=== PATIENT | female | born 1985 | race Caucasian/White ===

== ENCOUNTER 2017-02-05 06:09 | Inpatient (IN) | payer OTHER ==
[~2017-02-05] VITALS: Ht 160 cm; Wt 72.1 kg
[2017-02-05] VITALS (57 sets, daily range): BP systolic 100–121; BP diastolic 57–79; PULSE 60–185; RESP 14–18; TEMP 97.9–99.2; O2SAT 100
[~2017-02-05 06:09] MED LIST: FERR325C; PREN1TAB58
[2017-02-05] MEDS ORDERED: LACTATED RINGER'S 1000 ML INJ 1,000 ML IV PRN (06:38)
[2017-02-05] MEDS ORDERED: LACTATED RINGER'S 1000 ML INJ 1,000 ML IV SCH (06:38)
[2017-02-05] MEDS ORDERED: LIDOCAINE HCL 1% 50 ML VIAL INFIL PRN (06:45)
[2017-02-05] MEDS ORDERED: LIDOCAINE HCL 1% 50 ML VIAL I-DERMAL PRN (06:45)
[2017-02-05] MEDS ORDERED: CITRIC ACID-SODIUM CITRATE LIQ 30 ML UDC PO SCH (06:45)
[2017-02-05] MEDS ORDERED: SODIUM CHLORID 0.9% 500 ML INJ 500 ML IV PRN (06:45)
[2017-02-05] MEDS ORDERED: OXYTOCIN 30 UNITS-500ML PREMIX 500 ML IV ONE (06:45)
[2017-02-05] MEDS ORDERED: MINERAL OIL 10 ML VIAL TOPICAL PRN (06:45)
--- NOTE | 2017-02-05 06:52 | HHI.HP ---
HPI Chief Complaint labor Date Seen: Feb 05, 2017 Time Seen: 06:40 Travel History International Travel<30 Days: No Contact w/Intl Traveler<30Days: No Known Affected Area: No History of Present Illness HPI 31YO at 39/3 weeks presents in labor with 48 hours of bloody discharge. Pt is GBS and Hep B negative describing contractions 2-3 minutes apart, 6/100/-1. Category 1 tracing. Para: 1 : 5 Miscarriage: 3 History Past Medical History Medical History: Denies Significant Hx Past Surgical History Narrative Surgical previous C/S Family History Family History: Negative Social History Alcohol Use: No Tobacco Use: No Substance Abuse: No Allergies-Medications (Allergen,Severity, Reaction): Coded Allergies: Penicillin (Verified Allergy, Severe, ANAPHYLAXIS, 01/25/17) Comments denies PCN allergy Home Meds Reported Medications Vit/Iron Fumarate/FA ( Vitamin Formula Tb)1 Each Tablet 12/21/16 Ferrous Sulfate (Iron)325 Mg Capsule.er 12/21/16 Physical Exam Temp - 98.0 / P - 62 / BP - 108/73 / RR - 18 on RA Narrative GENERAL: Well-nourished, well-developed patient. SKIN: Warm and dry. HEAD: Normocephalic and atraumatic. EYES: No scleral icterus. No injection or drainage. ENT: No nasal drainage noted. Mucous membranes pink. Airway patent. NECK: Supple, trachea midline. CARDIOVASCULAR: Regular rate and rhythm without murmurs, gallops, or rubs. RESPIRATORY: Breath sounds equal bilaterally. No accessory muscle use. ABDOMEN/GI: Abdomen soft, non-tender, no rebound, no guarding Gravid to 39 weeks size GENITOURINARY: External Genitalia: intact and normal in appearance Cervix: anterior Dilatation: 6-7 Effacement: 100 Station: -1 Presentation: vtx Membranes: ruptured Uterine Contractions: 2-3 minutes/regular FHT's: Category: 1 Baseline: 140 Reactive: yes Variability: moderate Decels: 0 EXTREMITIES: No cyanosis or edema. BACK: Nontender without obvious deformity. NEUROLOGICAL: Awake and alert. Motor and sensory grossly within normal limits. Five out of 5 muscle strength in all muscle groups. Normal speech. Data Data Orders Ob (2e) Additional Admit Info (02/05/17 06:27) Admit To Inpatient (02/05/17 ) Vital Signs (Adult) .Per protocol (02/05/17 06:38) Heart (02/05/17 06:38) Amnioinfusion (02/05/17 06:38) Urinary Catheter Management .ONCE (02/05/17 06:38) Diet Liquid (02/05/17 Breakfast) Lactated Ringer's 1000 Ml Inj (Lr 1000 M (02/05/17 06:38) Lactated Ringer's 1000 Ml Inj (Lr 1000 M (02/05/17 06:38) Sodium Chlorid 0.9% 500 Ml Inj (Ns 500 M (02/05/17 06:45) Sodium Chlor 0.9% 1000 Ml Inj (Ns 1000 M (02/05/17 06:58) Lidocaine 1% Inj (50 Ml) (Xylocaine 1% I (02/05/17 06:45) Citric Acid-Sodium Citrate Liq (Bicitra (02/05/17 06:45) Fentanyl Inj (Fentanyl Inj) (02/05/17 06:45) Fentanyl Inj (Fentanyl Inj) (02/05/17 06:45) Complete Blood Count With Diff (02/05/17 06:38) Hold Clot (02/05/17 06:38) Abo/Rh Blood Type (02/05/17 06:38) Urinalysis - C+S If Indicated (02/05/17 06:38) Resp Oxygen Non Rebreathe Mask (02/05/17 ) ^ Epidural / Intrathecal Infus (02/05/17 06:38) Oxytocin 30 Units-500ml Premix (Pitocin (02/05/17 06:45) Lidocaine 1% Inj (50 Ml) (Xylocaine 1% I (02/05/17 06:45) Light Mineral Oil (Muri-Lube Oil) (02/05/17 06:45) Inpatient Certification (02/05/17 ) Specimen To Be Collected PRN (02/05/17 06:38) Assessment/Plan Assessment and Plan 31 YO at 39/3 weeks with prior C/S presents in active labor for at 6/ 100/-1. Pt is GBS and HepB negative. Category 1 tracing. 1. IUP - Category 1 tracing - GBS and Hep B neg - Mother desires w/o epidural - Continuous monitor - IV placed - SROM 48 hours ago and bloody Discharge Planning home Ambrocio Martínez MD R1 Feb 05, 2017 06:52
[2017-02-05] MEDS ORDERED: SODIUM CHLOR 0.9% 1000 ML INJ 1,000 ML IV PRN (06:58)
[2017-02-05 07:16] LABS: AUTOMATED NEUTROPHIL # 11.7 TH/MM3 (1.8-7.7); BASOPHIL # 0.1 TH/MM3 (0-0.2); BASOPHIL % 0.5 % (0.0-2.0); EOSINOPHIL % 0.1 % (0.0-4.0); HEMATOCRIT 35.6 % (35.0-46.0); HEMO FLAGS DIFF FINAL; LYMPH % 19.5 % (9.0-44.0); MEAN CELL VOLUME 85.8 FL (80.0-100.0); MEAN CORPUSCULAR HEMOGLOBIN 27.9 PG (27.0-34.0); MEAN CORPUSCULAR HGB CONC 32.5 % (32.0-36.0); MONO % 4.7 % (0.0-8.0); NEUT % 75.2 % (16.0-70.0); PLATELET COUNT 395 TH/MM3 (150-450); RED BLOOD COUNT 4.16 MIL/MM3 (4.00-5.30); RED CELL DISTRIBUTION WIDTH 13.8 % (11.6-17.2); WHITE BLOOD COUNT 15.6 TH/MM3 (4.0-11.0)
[2017-02-05 07:25] LABS: BLOOD, URINE NEG (NEG); COMMENT (UR) CULT NOT INDICATED; CULTURE IF INDICATED CULT NOT INDICATED; GLUCOSE,URINE NEG (NEG); KETONE, URINE NEG (NEG); NITRITE,URINE NEG (NEG); URINE COLOR LIGHT-YELLOW (YELLW/STRAW)
[2017-02-05] MEDS ORDERED: fentaNYL 2MCG-BUPIV 0.125% INJ 100 ML ONE (08:09)
[2017-02-05] MEDS ORDERED: ePHEDrine/NS 25 MG/5 ML SYR ONE (08:09)
[2017-02-05] MEDS ORDERED: NO SYSTEM NARCOTICS PRN (10:00)
[2017-02-05] MEDS ORDERED: DO NOT ADMINISTER ANTICOAGULANTS PRN (10:00)
[2017-02-05] MEDS ORDERED: fentaNYL 2MCG-BUPIV 0.125% 100 ML EPIDURAL SCH (10:00)
[2017-02-05] MEDS ORDERED: ePHEDrine/NS 25 MG/5 ML SYR IV PRN (10:00)
--- NOTE | 2017-02-05 10:12 | PD.LABORPN ---
Subjective Subjective Patient comfortable. Epidural working well. (Kaylynn Henderson MD R1) Objective Vital Signs Vital Signs Date Time Temp Pulse Resp B/P Pulse Ox O2 Delivery O2 Flow Rate FiO2 02/05/17 10:05 67 02/05/17 10:00 73 02/05/17 10:00 71 107/72 02/05/17 09:50 74 02/05/17 09:49 97.9 14 02/05/17 09:45 67 02/05/17 09:45 72 106/67 02/05/17 09:40 72 02/05/17 09:35 75 02/05/17 09:30 70 02/05/17 09:30 67 115/79 02/05/17 09:15 64 114/70 02/05/17 09:15 66 02/05/17 09:15 62 02/05/17 09:15 15 02/05/17 09:10 64 02/05/17 09:10 60 02/05/17 09:10 65 104/78 02/05/17 09:05 61 02/05/17 09:05 64 105/71 02/05/17 09:05 62 02/05/17 09:00 68 02/05/17 09:00 71 02/05/17 09:00 68 108/75 02/05/17 08:55 66 02/05/17 08:55 73 02/05/17 08:55 72 116/64 02/05/17 08:50 63 02/05/17 08:50 78 113/66 02/05/17 08:50 82 02/05/17 08:45 67 118/75 02/05/17 08:45 71 02/05/17 08:45 70 02/05/17 08:40 100/63 100 02/05/17 08:40 63 02/05/17 08:40 65 02/05/17 08:39 66 02/05/17 08:39 114/74 02/05/17 08:35 82 02/05/17 08:35 185 02/05/17 08:30 81 02/05/17 08:30 94 02/05/17 08:18 71 120/73 02/05/17 08:15 18 02/05/17 08:15 108 100 02/05/17 06:28 62 108/73 02/05/17 06:25 73 Objective Pelvic Exam: Dilatation: 7 Effacement: 100 Station: -1 Presentation: Vertex Membranes: AROM at 1010; minimal fluid; clear; bloody show Uterine Contractions: q3min FHT's: Category: 1 Baseline: 124 Reactive: + Variability: Moderate Decels: None (Kaylynn Henderson MD R1) Assessment/Plan Assessment and Plan 31 y/o at 39/3 weeks with prior C/S presents in active labor for . 1. IUP * Category 1 tracing * GBS and Hep B neg * Mother desires * s/p epidural - now resting comfortably * Continuous monitor * Subjective SROM 48 hours from admission * AROM at 1010 - see PE. (Kaylynn Henderson MD R1) Assessment and Plan PT seen and examined with resident, agree with above. Cat I tracing, progressing well. consider oxytocin if no cervical change in 2 hours or contractions space out. ( Josefina Sanchez MD) Kaylynn Henderson MD R1 Feb 05, 2017 10:12 Josefina Sanchez MD Feb 05, 2017 10:26
--- NOTE | 2017-02-05 13:29 | PD.OB.DELI ---
Delivery Date: Feb 05, 2017 Anesthesia: Epidural Episiotomy: None Vaginal Delivery: Normal, Spontaneous, Presentation: Occiput anterior, Vertex Nuchal Cord: x1 (Reduced) Delayed cord clamping (45 sec): Yes Infant: Female, Single One Minute : 8 Five Minute : 9 Placenta: Spontaneous delivery, Intact, 3 vessel cord Laceration: Vaginal laceration, Perineal laceration, 2 deg Repair: Vicryl running Estimated blood loss: 300mL Additional Information Patient is a 31-year-old Who delivered without complications. Delivery was a with epidural in placed. Cord was clamped and cut after 60s. Intact placenta was delivered. After delivery, a secondary laceration on the R inferior vaginal wall as well as perineum were repaired with running vicryl suture. Hemostasis was obtained. Currently mother and baby are resting comfortably in room without complaints. Weight not yet obtained at time of note. (Kaylynn Henderson MD R1) Attestation I was present and directly supervised the entire delivery procedure and repair. (Lary Bonilla MD) Kaylynn Henderson MD R1 Feb 05, 2017 13:29 Lary Bonilla MD Feb 05, 2017 13:50
[2017-02-05] MEDS ORDERED: ONDANSETRON ODT 4 MG TAB PO PRN (13:30)
[2017-02-05] MEDS ORDERED: OXYTOCIN 30 UNITS-500ML PREMIX 500 ML IV SCH (13:30)
[2017-02-05] MEDS ORDERED: BENZOCAINE 20% TOPICAL SPRAY 60 ML CAN TOPICAL PRN (13:30)
[2017-02-05] MEDS ORDERED: ALUMINUM/MAGNESIUM/SIMETH 30 ML CUP PO PRN (13:30)
[2017-02-05] MEDS ORDERED: oxyCODONE/ACETAMINOPHEN 5 MG/325 MG TAB PO PRN ×2 (13:30)
[2017-02-05] MEDS ORDERED: ZOLPIDEM TARTRATE 5 MG TAB PO PRN (13:30)
[2017-02-05] MEDS ORDERED: DOCUSATE SODIUM 50 MG/SENNA 8.6 MG TAB PO PRN (13:30)
[2017-02-05] MEDS ORDERED: WITCH HAZEL 50%/GLYCERIN 12.5% 40 PAD JAR TOPICAL PRN (13:30)
[2017-02-05] MEDS ORDERED: SODIUM CHLORIDE 0.9% FLUSH 10 ML FLUSH IV FLUSH PRN (13:30)
[2017-02-05] MEDS: IBUPROFEN 600 MG TAB PO PRN ×2 (13:34→19:36)
[2017-02-05] MEDS ORDERED: SODIUM CHLORIDE 0.9% FLUSH 10 ML FLUSH IV FLUSH SCH (14:00)
[2017-02-05] MEDS ORDERED: MEASLES, MUMPS, RUBELLA VACCINE 0.5 ML VIAL SQ ONE (16:00)
[2017-02-05] MEDS ORDERED: DIPHTH/TETANUS/ACEL PERTUSSIS (BOOSTER) 0.5 ML VIAL/PFS IM ONE (16:00)
[2017-02-05] MEDS: ACETAMINOPHEN 325 MG TAB PO PRN ×2 (19:36→23:39)
[2017-02-06] MEDS: IBUPROFEN 600 MG TAB PO PRN ×3 (01:24→15:35)
[2017-02-06] MEDS: ACETAMINOPHEN 325 MG TAB PO PRN ×3 (05:12→12:36)
[2017-02-06 08:05] VITALS: BP 117/72; PULSE 64; RESP 18; TEMP 98
--- NOTE | 2017-02-06 08:19 | HHI.OB ---
Subjective Post Day: 1 Remarks Patient is a 31-year-old delivered at 39 weeks and 3 days. Patient is day one after spontaneous vaginal delivery. Patient's pain is well- controlled. Patient reports minimal bleeding. Patient reports eating and drinking without any nausea or vomiting. Patient has passed gas but has not had a bowel movement. Patient denies chest pain and shortness of breath. Patient has been ambulating; she denies lower extremity pain. Patient has decided to breast-feed. Patient reports that she will discuss contraception with her OB at her 6 week follow-up. (Kaylynn Henderson MD R1) Objective Vitals/I&O Vital Signs Date Time Temp Pulse Resp B/P Pulse Ox O2 Delivery O2 Flow Rate FiO2 02/05/17 19:35 98.4 76 16 106/67 02/05/17 15:58 102/63 02/05/17 15:58 85 18 02/05/17 14:30 71 103/57 02/05/17 14:01 15 02/05/17 14:00 65 107/60 02/05/17 13:48 15 02/05/17 13:45 66 108/71 02/05/17 13:38 14 02/05/17 13:37 77 121/68 02/05/17 13:25 14 02/05/17 13:22 76 02/05/17 13:06 99.2 02/05/17 13:05 15 02/05/17 13:01 62 02/05/17 12:02 90 114/64 02/05/17 12:00 80 02/05/17 12:00 15 02/05/17 11:40 76 02/05/17 11:35 74 02/05/17 11:30 76 114/65 02/05/17 11:30 78 02/05/17 11:10 70 02/05/17 11:05 67 02/05/17 11:00 63 02/05/17 11:00 72 106/68 02/05/17 10:55 70 02/05/17 10:50 66 02/05/17 10:45 73 02/05/17 10:45 73 102/70 02/05/17 10:40 68 02/05/17 10:37 14 02/05/17 10:35 72 02/05/17 10:30 68 02/05/17 10:30 71 105/66 02/05/17 10:25 74 02/05/17 10:20 67 02/05/17 10:15 68 02/05/17 10:15 66 113/66 02/05/17 10:10 78 02/05/17 10:05 67 02/05/17 10:00 73 02/05/17 10:00 71 107/72 02/05/17 09:55 76 02/05/17 09:50 74 02/05/17 09:49 97.9 14 02/05/17 09:45 67 02/05/17 09:45 72 106/67 02/05/17 09:40 72 02/05/17 09:35 75 02/05/17 09:30 70 02/05/17 09:30 67 115/79 02/05/17 09:15 64 114/70 02/05/17 09:15 66 02/05/17 09:15 62 02/05/17 09:15 15 02/05/17 09:10 64 02/05/17 09:10 60 02/05/17 09:10 65 104/78 02/05/17 09:05 61 02/05/17 09:05 64 105/71 02/05/17 09:05 62 02/05/17 09:00 68 02/05/17 09:00 71 02/05/17 09:00 68 108/75 02/05/17 08:55 66 02/05/17 08:55 73 02/05/17 08:55 72 116/64 02/05/17 08:50 63 02/05/17 08:50 78 113/66 02/05/17 08:50 82 02/05/17 08:45 67 118/75 02/05/17 08:45 71 02/05/17 08:45 70 02/05/17 08:40 100/63 100 02/05/17 08:40 63 02/05/17 08:40 65 02/05/17 08:39 66 02/05/17 08:39 114/74 02/05/17 08:35 82 02/05/17 08:35 185 02/05/17 08:30 81 02/05/17 08:30 94 Objective Remarks GENERAL: Well-nourished, well-developed patient. CARDIOVASCULAR: Regular rate and rhythm without murmurs, gallops, or rubs. RESPIRATORY: Breath sounds equal bilaterally. No accessory muscle use. ABDOMEN/GI: Abdomen soft, non-tender. Fundus: Firm, non-tender at umbilicus. GENITOURINARY: Light to moderate bleeding. EXTREMITIES: No cyanosis or edema, non-tender, without signs of DVT. Medications and IVs Current Medications Medications (Trade) Dose Ordered Sig/Bairon Route Start Time Stop Time Status Last Admin (NS Flush) 2 ml BID IV FLUSH 02/05/17 14:00 02/05/17 15:18 (NS Flush) 2 ml UNSCH PRN IV FLUSH 02/05/17 13:30 (Tylenol) 650 mg Q4H PRN PO 02/05/17 13:30 02/06/17 05:12 (Motrin) 600 mg Q6H PRN PO 02/05/17 13:30 02/06/17 01:24 (Percocet 5-325 Mg) 1 tab Q4H PRN PO 02/05/17 13:30 (Percocet 5-325 Mg) 2 tab Q4H PRN PO 02/05/17 13:30 (Americaine 20% Top Spr) 1 spray Q4H PRN TOPICAL 02/05/17 13:30 02/05/17 15:55 (Tucks Pads) 1 applic QID PRN TOPICAL 02/05/17 13:30 02/05/17 15:55 (Nahomi-Colace) 2 tab Q12H PRN PO 02/05/17 13:30 (Ambien) 5 mg HS PRN PO 02/05/17 13:30 (Mag-Al Plus Susp Liq) 15 ml Q8H PRN PO 02/05/17 13:30 (Zofran Odt) 4 mg Q6H PRN PO 02/05/17 13:30 (Kaylynn Henderson MD R1) Assessment/Plan Assessment and Plan Patient is a 31-year-old delivered at 39 weeks and 3 days. Patient is day one after spontaneous vaginal delivery. * Continue routine care. * Percocet and Motrin PRN pain. * Encouraged OOB. * Advised pelvic rest for 6 wks. * Advised to follow-up with OB at 6 wks. * Contraception: will discuss with OB at 6 week follow-up. * Discharge today. dw Dr. Bonilla (Kaylynn Henderson MD R1) Attending Attestation The exam, history, and the medical decision-making described in the above note were completed with the assistance of the resident provider. I reviewed and agree with the findings presented. I attest that I had a [id number] encounter with the patient on the same day, and personally performed and documented my assessment and findings in the medical record. (Lary Bonilla MD) Kaylynn Henderson MD R1 Feb 06, 2017 08:18 Lary Bonilla MD Feb 06, 2017 08:57
[2017-02-06] MEDS ORDERED: IBUP-232 PO (08:30)
--- NOTE | 2017-02-06 08:31 | HHI.DCPOC ---
Discharge Care Plan Diagnosis: (1) Vaginal delivery following previous section, delivered Your Health Problems Are: Vaginal delivery Report Symptoms to Your Doctor -Temperature above 100.5 degrees -Redness, of incision or excessive or foul smelling drainage -Unusual pain or calf pain -Increased vaginal bleeding -Painful or difficulty urinating -Feelings of extreme sadness or anxiety after 2 weeks Directions to Meet Your Goals Take your medications as prescribed Follow your dietary instruction Follow activity as directed Ensure plenty of rest for recovery Drink fluids for hydration Keep your appointments as scheduled Take your immunizations and boosters as scheduled If your symptoms worsen call your PCP, if no PCP go to Urgent Care Center or Emergency Room Smoking is Dangerous to Your Health. Avoid second hand smoke Call the 24-hour crisis hotline for domestic abuse at Kaylynn Henderson MD R1 Feb 06, 2017 08:31
== END 2017-02-06 15:38 | disposition home or self-care (01) | DRG 775 ==
LOC: HOBED 06:09 → H2EB 06:30 → H1EA 15:31
PROVIDERS: ADMIT Obstetrics & Gynecology; ATTEND Obstetrics & Gynecology
PROC: 10E0XZZ Delivery of Products of Conception, External Approach (ICD-10-PCS; principal; 2017-02-05)
PROC: 0KQM0ZZ Repair Perineum Muscle, Open Approach (ICD-10-PCS; 2017-02-05)
PROC: 0UQGXZZ Repair Vagina, External Approach (ICD-10-PCS; 2017-02-05)
PROC: 10907ZC Drainage of Amniotic Fluid, Therapeutic from Products of Conception, Via Natural or Artificial Opening (ICD-10-PCS; 2017-02-05)
DX: O34.219 Maternal care for unspecified type scar from previous cesarean delivery (principal); O69.81X0 Labor and delivery complicated by cord around neck, without compression, not applicable or unspecified; O70.1 Second degree perineal laceration during delivery; Z37.0 Single live birth; Z3A.39 39 weeks gestation of pregnancy; Z88.0 Allergy status to penicillin
CPT/HCPCS: 59025; 81001; 85025; 86900; 86901; J2590; J7120

== ENCOUNTER 2018-07-02 18:44 | Inpatient (IN) ==
[2018-07-02] MEDS ORDERED: Sod Chloride 0.9% Inj 1,000 ML IV.CONT PRN (19:19)
[2018-07-02] MEDS ORDERED: Penicillin G Potassium Inj 5,000,000 UNIT in Sodium Chloride 0.9% Inj 100 ML IV.SIG ONE (19:19)
[2018-07-02] MEDS ORDERED: Naloxone Inj 0.4 MG/ML Vial IV.PUSH PRN (19:19)
[2018-07-02] MEDS ORDERED: Oxytocin 30 Units/500ml Premix 30 UNITS/500 ML BAG IV.SIG ONE (19:19)
[2018-07-02] MEDS ORDERED: fentaNYL Citrate Inj 100 MCG/2 ML Ampul IV.PUSH PRN ×2 (19:19)
[2018-07-02] MEDS ORDERED: Sodium Chlor 0.9% Inj 500 ML IV.SIG PRN (19:19)
--- NOTE | 2018-07-02 19:27 | P.HPOB ---
History of Present Illness Primary Care Physician: NOT REQUIRED Dr. Luc Abreu Chief Complaint: Contractions History of Present Illness: Patient is 33-year-old white female A3 at 37 weeks is a previous for delivery now marta with pain every other minute, no bleeding or leakage. heart rate tracing reactive and we are picking up contractions frequently. They are very uncomfortable to patient. She would like a delivery again, she had one with her first baby for breech and then her second baby she delivered without problems she understands risk and benefits of delivery and that we consider a safe procedure especially in her case but there is a slight less than 1% uterine rupture rate which she is aware of and accepts that risk Weeks Gestation:: 37 Para: 2 (1 1 ) : 6 Total # of Miscarriage(s): 3 Review of Systems All other systems reviewed negative except as stated in HPI PMFSH - Surgical History Surgical History: Surgical History (Last Updated 07/02/18 @ 19:24 by Reese Zuniga MD) Previous section - Social History I have reviewed the patient's Social History: Yes - Tobacco History Smoking Status: Never smoker - Alcohol History How Often Do You Have a Drink Containing Alcohol: Never - Substance Use History Substance History: No History of Abuse - Travel History History of Recent Travel: No Recent Travel in the [place] Within the Last 8 Weeks: No Recent Travel Out of the Country Within the Last 8 Weeks: No Medications and Allergies Active Medications: Active Medications Citric Acid/Sodium Citrate (Sodium Citrate/Citric Acid Liq) 30 ml PO [facility] Stop: 07/06/18 19:29 Fentanyl Citrate (Fentanyl Inj) 50 mcg IV.PUSH Q1H PRN PRN Reason: Pain Scale 3 - 5 Fentanyl Citrate (Fentanyl Inj) 100 mcg IV.PUSH Q1H PRN PRN Reason: PAIN SCALE 6 TO 10 Lactated Ringer's (Lr 1000 Ml Inj) 1,000 mls @ 3,000 mls/hr IV.SIG UNSCH PRN PRN Reason: compromise or epidural Lactated Ringer's (Lr 1000 Ml Inj) 1,000 mls @ 125 mls/hr IV.CONT .Q8H [facility] Sodium Chloride (Ns Inj) 500 mls @ 1,000 mls/hr IV.SIG UNSCH PRN PRN Reason: SEE LABEL COMMENTS Sodium Chloride (Ns Inj) 1,000 mls @ 100 mls/hr IV.CONT .Q10H PRN PRN Reason: SEE LABEL COMMENTS Oxytocin (Pitocin 30 Units/Ns 500 Ml Premix) 30 units in 500 mls @ 999 mls/hr IV.SIG BOLUS ONE Stop: 07/02/18 19:49 Penicillin G Potassium 5,000, (000 unit/ Sodium Chloride) 100 mls @ 200 mls/hr IV.SIG ONCE ONE Stop: 07/02/18 19:48 Penicillin G Sodium 2,500,000 (units/ Sodium Chloride) 100 mls @ 200 mls/hr IV.SIG Q4H [facility] Lidocaine HCl (Xylocaine 1% Inj) 0.1 ml I-DERMAL PRN PRN PRN Reason: For IV start Stop: 07/05/18 19:18 Lidocaine HCl (Xylocaine 1% Inj) 10 ml INFILTRATN PRN PRN PRN Reason: For episiotomy repair Stop: 07/04/18 19:18 Mineral Oil (Muri-Lube Oil) 10 ml TOPICAL PRN PRN PRN Reason: PRN perineal massage Naloxone HCl (Narcan Inj) 0.1 mg IV.PUSH Q2M PRN PRN Reason: for opiate reversal Allergies Allergy/AdvReac Type Severity Reaction Status Date / Time No Known Allergies Allergy Uncoded 02/05/17 07:25 Exam Vital signs: Vital Signs 07/02/18 19:16 Temperature 98.6 F Pulse Rate 74 Respiratory Rate 18 Blood Pressure 115/72 Narrative: GENERAL: Well-nourished, well-developed patient. SKIN: Warm and dry. HEAD: Normocephalic and atraumatic. EYES: No scleral icterus. No injection or drainage. ENT: No nasal drainage noted. Mucous membranes pink. Airway patent. NECK: Supple, trachea midline. No JVD. CARDIOVASCULAR: Regular rate and rhythm without murmurs, gallops, or rubs. RESPIRATORY: Breath sounds equal bilaterally. No accessory muscle use. BREASTS: Bilateral exam showed no masses , no retractions, no nipple discharge. ABDOMEN/GI: Abdomen soft, non-tender, bowel sounds present, no rebound, no guarding Gravid to [337-] weeks size Fundal Height: [36-] GENITOURINARY: External Genitalia: intact and normal in appearance BUS glands: [-] Cervix: [-mid] Dilatation: [4-] Effacement: [90-] Station: [-2] Presentation: [vtx-] Membranes: [intact ] Uterine Contractions: [q 2 min-] FHT's: Category: [1-] Baseline: [133-] Reactive: [R-] Variability: [mod-] Decels: [-0] + accels EXTREMITIES: No cyanosis or edema. BACK: Nontender without obvious deformity. No CVA tenderness. NEUROLOGICAL: Awake and alert. Motor and sensory grossly within normal limits. Five out of 5 muscle strength in all muscle groups. Normal speech. Caprini VTE Risk Assessment Caprini VTE Risk Assessment: No/Low Risk (score <= 1) Caprini Risk Assessment Model: Point Value = 1 Point Value = 2 Point Value = 3 Point Value = 5 Age 41-60 Minor surgery BMI > 25 kg/m2 Swollen legs Varicose veins or History of unexplained or recurrent spontaneous Oral contraceptives or hormone replacement Sepsis (< 1 month) Serious lung disease, including pneumonia (< 1 month) Abnormal pulmonary function Acute myocardial infarction Congestive heart failure (< 1 month) History of inflammatory bowel disease Medical patient at bed rest Age 61-74 Arthroscopic surgery Major open surgery (> 45 min) Laparoscopic surgery (> 45 min) Malignancy Confined to bed (> 72 hours) Immobilizing plaster cast Central venous access Age >= 75 History of VTE Family history of VTE Factor V Leiden Prothrombin [id number] Lupus anticoagulant Anticardiolipin antibodies Elevated serum homocysteine Heparin-induced thrombocytopenia Other congenital or acquired thrombophilia Stroke (< 1 month) Elective arthroplasty Hip, pelvis, or leg fracture Acute spinal cord injury (< 1 month) Prophylaxis Regimen: Total Risk Factor Score Risk Level Prophylaxis Regimen 0-1 Low Early ambulation 2 Moderate Order ONE of the following: *Sequential Compression Device (SCD) *Heparin 5000 units SQ BID 3-4 Higher Order ONE of the following medications: *Heparin 5000 units SQ TID *Enoxaparin/Lovenox 40 mg SQ daily (WT < 150 kg, CrCl > 30 mL/min) *Enoxaparin/Lovenox 30 mg SQ daily (WT < 150 kg, CrCl > 10-29 mL/min) *Enoxaparin/Lovenox 30 mg SQ BID (WT < 150 kg, CrCl > 30 mL/min) AND/OR *Sequential Compression Device (SCD) 5 or more Highest Order ONE of the following medications: *Heparin 5000 units SQ TID (Preferred with Epidurals) *Enoxaparin/Lovenox 40 mg SQ daily (WT < 150 kg, CrCl > 30 mL/min) *Enoxaparin/Lovenox 30 mg SQ daily (WT < 150 kg, CrCl > 10-29 mL/min) *Enoxaparin/Lovenox 30 mg SQ BID (WT < 150 kg, CrCl > 30 mL/min) AND *Sequential Compression Device (SCD) Assessment and Plan - Diagnosis (1) 37 or more weeks gestation of Status: Acute (2) Previous section complicating Code(s): O34.219 - Maternal care for unspecified type scar from previous delivery Status: Acute (3) Desires (vaginal after ) trial Code(s): O34.219 - Maternal care for unspecified type scar from previous delivery Status: Acute - Plan This multiparous patient at 37-38 weeks with a previous section requesting delivery because she has had a previous with success. She is in active labor now and understands risk and benefits of and will proceed with that procedure. Probably will receive epidural anesthesia and would anticipate vaginal delivery, admission plan will be to manage and augment labor as needed anticipate vaginal delivery in the form of a
[2018-07-02] MEDS ORDERED: Citric Acid/Sodium Citrate Liq 30 ML UDC PO SCH (19:30)
[2018-07-02] MEDS ORDERED: Lidocaine 1% Inj 50 ML Vial ONE (19:57)
[2018-07-02 20:14] LABS: Bilirubin,Urine Negative (Negative); Clarity,Urine Clear (Clear); Color,Urine Straw (Yellw/Straw); Glucose,Urine (UA) Negative (Negative); Leukocyte Esterase,Urine Negative (Negative); Mucus,Urine Few /lpf (Occasional); Nitrite,Urine Negative (Negative); Specific Gravity,Urine 1.005 (1.002-1.035); Squamous Epithelial Cell,Urine 1 /hpf (0-5)
[2018-07-02 20:30] LABS: Baso # (Auto) 0.1 th/mm3 (0.0-0.2); Baso % (Auto) 0.5 % (0.0-2.0); Eos % (Auto) 0.1 % (0.0-4.0); Hematocrit 34.8 % (35.0-46.0); Hemoglobin 11.6 gm/dL (11.6-15.3); Lymph # (Auto) 2.7 th/mm3 (1.0-4.8); Lymph % (Auto) 17.7 % (9.0-44.0); Mean Corpuscular HGB Conc 33.4 % (32.0-36.0); Mean Corpuscular Volume 86.9 fL (80.0-100.0); Mean Platelet Volume 7.4 fL (7.0-11.0); Mono # (Auto) 0.8 th/mm3 (0.0-0.9); Mono % (Auto) 5.1 % (0.0-8.0); Neut # (Auto) 11.6 th/mm3 (1.8-7.7); Neut % (Auto) 76.6 % (16.0-70.0); Platelet Count 390 th/mm3 (150-450); Red Blood Count 4.01 mil/mm3 (4.00-5.30); Red Cell Distribution Width 13.4 % (11.6-17.2); White Blood Count 15.2 th/mm3 (4.0-11.0)
[2018-07-02 21:13] LABS: Amphetamine Urine With Conf Neg (Neg); Benzodiazepine Urine With Conf Neg (Neg); Cocaine Urine With Conf Neg (Neg); Opiates Urine With Conf Neg (Neg)
[2018-07-02 21:17] LABS: Cannabinoid Urine With Conf Neg (Neg)
[2018-07-03] MEDS ORDERED: Morphine Sulfate PF Inj 5 MG/10 ML Ampul ONE (00:23)
[2018-07-03] MEDS ORDERED: Albumin Human 5% Inj 500 ML IV.SIG ONE ×2 (02:00)
[2018-07-03] MEDS ORDERED: Acetaminophen 325 MG Tablet PO PRN (02:16)
[2018-07-03] MEDS ORDERED: Zolpidem Tartrate 5 MG Tablet PO PRN (02:16)
[2018-07-03] MEDS ORDERED: Oxytocin 30 Units/500ml Premix 30 UNITS/500 ML BAG IV.SIG ONE (02:16)
[2018-07-03] MEDS ORDERED: Simethicone 80 MG Chew Tablet PO PRN (02:16)
[2018-07-03] MEDS ORDERED: fentaNYL Citrate Inj 100 MCG/2 ML Ampul ONE (02:22)
--- NOTE | 2018-07-03 02:32 | P.OP ---
- Preoperative Diagnosis (1) 37 or more weeks gestation of (2) Breech presentation (3) Uterine contractions during - Postoperative Diagnosis (1) 37 or more weeks gestation of (2) Breech presentation (3) Uterine contractions during Date of procedure: 07/03/18 (Patient is 33-year-old white female 37 weeks who has in the past was trying to this baby but on ruptured membranes discovered the baby was a carmen breech opted for repeat section) Procedure: Repeat low transverse section Repair of left uterine incision extension into the vagina Anesthesia: spinal Surgeon: Reese Zuniga MD Nursing Associate: Svetlana Parson R1 Estimated blood loss (mL): 2,200 IV fluids (mL): 2,000 (Also 1 bottle of albumin and 1 unit of packed red cells given) Urine output (mL): 100 Operation and Findings: Patient was taken operating room placed supine position on the operating table after adequate spinal anesthesia, a low transverse Pfannenstiel incision was excised out and then the incision carried to the fascia sharply the fascia dissected laterally and then off the rectus muscle in the usual fashion. Incision made in the midline into the perineal cavity and the incision extended superiorly and inferiorly with care used to avoid the bladder. Notably placed lower incision and the visceral peritoneum reflected off the lower uterine segment and the bladder placed on the bladder blade. A transverse hysterotomy was placed in the bluntly bilaterally and a carmen breech was noted at that time and was a male weight 2630 gm delivered at 12:55 AM and had an of 8 /9. Delayed cord clamping observed and a cord blood obtained placenta manually extracted. The uterus exteriorized and that time we could see a large extension on the left side of the uterine incision down laterally and in to the vagina ring forceps placed along the edges of the segment and I can follow this extension all the way down to the vagina and this area had a avulsed off the uterine vessels artery and vein which were bleeding rather briskly hemostat was used to clamp these vessels they were oversewn with 2-0 Vicryl and then a 0 chromic used to start at the deepest apex of the extension on the lateral side and then work toward the lower uterine segment in a running locking fashion once this was brought up to the level of the uterine incision that was tied and then a second 0 chromic suture then used to close the transverse uterine incision in the usual fashion locking suture followed by an imbricating suture same on reexamining the area of extension on the left side deeply some small oozing areas noted and Bovie cautery used to cauterize this and then Bryant powder placed to deeply into this whole area. The uterus replaced in the peritoneal cavity the parietal peritoneum closed running 2-0 Vicryl rectus muscle reapproximated with stick ties of chromic and Vicryl and then the fascia closed a running layer of 0 Vicryl. The subcutaneous tissues irrigated copiously and then closed with 3-0 plain catgut suture in a running fashion in 2 layers to close the space. And then 3-0 Monocryl subcuticular stitch closed the skin Steri-Strips and pressure dressing applied. The estimated blood loss was 2200 cc, she received a bottle of albumin IV as well as 1 unit of blood in surgery. Sponge and needle counts correct x2 patient taken to recovery room in stable condition.
[2018-07-03 03:14] LABS: Hematocrit 24.7 % (35.0-46.0); Hemoglobin 8.4 gm/dL (11.6-15.3)
[2018-07-03] MEDS: Penicillin G Potassium Inj 2,500,000 UNIT in Sodium Chlor 0.9% Inj 100 ML IV.SIG SCH ×2 (03:14→07:51)
[2018-07-03] MEDS ORDERED: Naloxone Inj 0.4 MG/ML Vial IV.PUSH PRN (04:26)
[2018-07-03] MEDS ORDERED: Oxytocin 30 Units/500ml Premix 30 UNITS/500 ML BAG IV.SIG PRN (07:16)
[2018-07-03 07:42] LABS: Hematocrit 23.8 % (35.0-46.0); Hemoglobin 8.1 gm/dL (11.6-15.3); Mean Corpuscular HGB Conc 33.9 % (32.0-36.0); Mean Corpuscular Hemoglobin 29.7 pg (27.0-34.0); Mean Corpuscular Volume 87.8 fL (80.0-100.0); Mean Platelet Volume 7.1 fL (7.0-11.0); Platelet Count 245 th/mm3 (150-450); Red Blood Count 2.71 mil/mm3 (4.00-5.30); Red Cell Distribution Width 13.3 % (11.6-17.2); White Blood Count 24.7 th/mm3 (4.0-11.0)
[2018-07-03] MEDS ORDERED: Iohexol Inj 350 MG/ML 100 ML Bottle (for RAD Diag) IVCONTRAST ONE (10:15)
--- NOTE | 2018-07-03 10:48 | XR ---
EXAM DATE: 07/03/2018 10:31 AM EST AGE/SEX: 33 years / Female INDICATIONS: Evaluate left ureteral patency post section CLINICAL DATA: This is the patient's initial encounter. Patient reports that signs and/or symptoms h ave been present for 1 day and indicates a pain score of 6/10. LOCATION: MEDICAL/SURGICAL HISTORY: None. COMPARISON: No prior exams available for comparison. RADIATION DOSE: FINDINGS: Pulmonary interviewing clerk film is unremarkable. Following intravenous administration of contrast there is prompt symmetric excretion by the kidneys. Symmetric nephrograms are noted. Pelvicalyceal systems are normal bilaterally without evidence of hydronephrosis. Both ureters are well-opacified without evidence of obstruction or leakage. Urinary bladder is intact. Ashley catheter is noted in place. CONCLUSION: Normal IVP. No evidence of ureteral disruption. Electronically signed by: Alexandr Horton MD Board Certified Radiologist 07/03/2018 10:47 AM EST
[2018-07-03] MEDS: Senna/Docusate Sodium 8.6/50 MG Tablet PO PRN (12:28)
[2018-07-04] MEDS: Senna/Docusate Sodium 8.6/50 MG Tablet PO PRN (03:30)
[2018-07-04 05:19] LABS: Baso % (Auto) 0.1 % (0.0-2.0); Eos % (Auto) 0.1 % (0.0-4.0); Lymph # (Auto) 2.5 th/mm3 (1.0-4.8); Lymph % (Auto) 12.1 % (9.0-44.0); Mean Corpuscular HGB Conc 33.3 % (32.0-36.0); Mean Corpuscular Hemoglobin 29.1 pg (27.0-34.0); Mean Corpuscular Volume 87.4 fL (80.0-100.0); Mono # (Auto) 1.2 th/mm3 (0.0-0.9); Neut # (Auto) 16.6 th/mm3 (1.8-7.7); Neut % (Auto) 81.7 % (16.0-70.0); Platelet Count 221 th/mm3 (150-450); Red Blood Count 1.96 mil/mm3 (4.00-5.30); Red Cell Distribution Width 13.7 % (11.6-17.2); White Blood Count 20.3 th/mm3 (4.0-11.0)
[2018-07-04 05:28] LABS: Hematocrit 17.2 % (35.0-46.0); Hemoglobin 5.7 gm/dL (11.6-15.3)
[2018-07-04] MEDS ORDERED: Sodium Chlor 0.9% Inj 250 ML IV.SIG SCH (08:00)
--- NOTE | 2018-07-04 09:37 | P.PNOB ---
Subjective Post op day: 1 Interval history: Patient is a 33-year-old G 6 P 3 who is day 1 after repeat section. Patient's pain is well-controlled. Patient reports eating and drinking without any nausea or vomiting. Patient reports minimal bleeding. Patient has passed gas but no bowel movements. Patient is walking without lower extremity pain or shortness of breath. She is fatigued. Patient reports desire for breast-feeding. Her hemoglobin dropped overnight from 8.1 to 5.7. She was tachycardic and hypotensive. It was discussed with the patient and 2 units of packed red blood cells will be transfused. Objective Vital Signs/I&O: Vital Signs 07/03/18 12:00 07/03/18 16:00 07/03/18 19:46 Temperature 98.4 F 99.3 F 99.5 F Pulse Rate 102 H 106 H 96 H Respiratory Rate 18 18 18 Blood Pressure 95/57 L 96/46 L 83/51 L 07/04/18 05:37 07/04/18 08:00 Temperature 98.4 F 99.4 F Pulse Rate 112 H 109 H Respiratory Rate 18 18 Blood Pressure 103/66 104/64 Result Diagrams: 07/04/18 09:35 Objective Remarks: GENERAL: Well-nourished, well-developed patient. CARDIOVASCULAR: Regular rate and rhythm without murmurs, gallops, or rubs. RESPIRATORY: Breath sounds equal bilaterally. No accessory muscle use. ABDOMEN/GI: Abdomen soft, non-tender, bowel sounds present. Incision: Clean, dry and intact. Fundus: Firm, non-tender at umbilicus. GENITOURINARY: Light to moderate bleeding. EXTREMITIES: No cyanosis or edema, non-tender, without signs of DVT. Medications and IVs: Active Medications Acetaminophen (Tylenol) 650 mg PO Q6H PRN PRN Reason: PAIN SCALE 1 TO 2 Citric Acid/Sodium Citrate (Sodium Citrate/Citric Acid Liq) 30 ml PO [facility] MARIA DEL CARMEN Stop: 07/06/18 19:29 Diphtheria/Pertussis/Tetanus Vacc (Boostrix Vaccine Inj) 0.5 ml IM .ONCE ONE Stop: 07/04/18 16:01 Fentanyl Citrate (Fentanyl Inj) 50 mcg IV.PUSH Q1H PRN PRN Reason: Pain Scale 3 - 5 Last Admin: 07/02/18 23:25 Dose: 50 mcg Fentanyl Citrate (Fentanyl Inj) 100 mcg IV.PUSH Q1H PRN PRN Reason: PAIN SCALE 6 TO 10 Lactated Ringer's (Lr 1000 Ml Inj) 1,000 mls @ 3,000 mls/hr IV.SIG UNSCH PRN PRN Reason: compromise or epidural Lactated Ringer's (Lr 1000 Ml Inj) 1,000 mls @ 125 mls/hr IV.CONT .Q8H [facility]IA DEL CARMEN Last Admin: 07/04/18 07:54 Dose: Not Given Sodium Chloride (Ns Inj) 500 mls @ 1,000 mls/hr IV.SIG UNSCH PRN PRN Reason: SEE LABEL COMMENTS Sodium Chloride (Ns Inj) 1,000 mls @ 100 mls/hr IV.CONT .Q10H PRN PRN Reason: SEE LABEL COMMENTS Oxytocin (Pitocin 30 Units/Ns 500 Ml Premix) 30 units in 500 mls @ 100 mls/hr IV.SIG UNSCH PRN PRN Reason: Heavy bleeding Sodium Chloride (Ns Inj) 250 mls @ 15 mls/hr IV.SIG ONCE MAR[facility] DEL CARMEN Stop: 07/05/18 00:39 Ibuprofen (Motrin) 800 mg PO Q8H PRN PRN Reason: cramping Last Admin: 07/04/18 01:34 Dose: 800 mg Lidocaine HCl (Xylocaine 1% Inj) 0.1 ml I-DERMAL PRN PRN PRN Reason: For IV start Stop: 07/05/18 19:18 Lidocaine HCl (Xylocaine 1% Inj) 10 ml INFILTRATN PRN PRN PRN Reason: For episiotomy repair Stop: 07/04/18 19:18 Measles/Mumps/Rubella Vaccine Live (M-M-R Ii Vaccine Inj) 0.5 ml SQ .ONCE ONE Stop: 07/04/18 16:01 Mineral Oil (Muri-Lube Oil) 10 ml TOPICAL PRN PRN PRN Reason: PRN perineal massage Naloxone HCl (Narcan Inj) 0.1 mg IV.PUSH Q2M PRN PRN Reason: for opiate reversal Ondansetron HCl (Zofran Inj) 4 mg IV.PUSH Q6H PRN PRN Reason: NAUSEA OR VOMITING Oxycodone/Acetaminophen (Percocet 5/325 Mg) 1 tab PO Q4H PRN PRN Reason: PAIN SCALE 3 TO 5 Last Admin: 07/04/18 03:27 Dose: 1 tab Oxycodone/Acetaminophen (Percocet 5/325 Mg) 2 tab PO Q4H PRN PRN Reason: PAIN SCALE 6 TO 10 Last Admin: 07/04/18 07:55 Dose: 2 tab Senna/Docusate Sodium (Nahomi-Colace) 2 tab PO Q12H PRN PRN Reason: CONSTIPATION Last Admin: 07/04/18 03:30 Dose: 2 tab Simethicone (Mylicon Chew) 80 mg PO QID PRN PRN Reason: FLATULENCE Sodium Chloride (Ns Flush) 2 ml IV.FLUSH BID MARIA DEL CARMEN Last Admin: 07/03/18 21:00 Dose: 2 ml Sodium Chloride (Ns Flush) 2 ml IV.FLUSH PRN PRN PRN Reason: FLUSH AFTER USING IV ACCESS Zolpidem Tartrate (Ambien) 5 mg PO HS PRN PRN Reason: INSOMNIA Assessment and Plan - Diagnosis (1) delivery delivered Code(s): O82 - Encounter for delivery without indication Status: Acute - Plan Patient is a 33-year-old G 6 P 3 who is day 1 after section. Patient was counseled to do 6 weeks of pelvic rest. Patient was counseled to follow up in 1 week for incision check. Patient requested follow- up. --AF VSS --Continue routine care --Transfused 2 units packed red blood cells. Repeat H&H 2 hours post transfusion --Motrin and Percocet when necessary for pain --Encourage OOB --Pelvic rest for 6 weeks will need follow-up appointment at that time. --Contraception: contemplating --Anticipate discharge tomorrow - Attending Attestation The exam, history, and the medical decision-making described in the above note were completed with the assistance of the resident physician. I reviewed and agree with the findings presented. I attest that I had a [id number] encounter with the patient on the same day, and personally performed and documented my assessment and findings in the medical record. Pt seen and examined. She c/o significant fatigue. Difficulty ambulating. Hemoglobin decreased this AM- not unexpected with blood loss at time of c section. Will transfuse 2 units PRBCs and recheck Hgb. Pt agrees.
[2018-07-04 09:50] LABS: Hematocrit 20.6 % (35.0-46.0); Hemoglobin 6.9 gm/dL (11.6-15.3)
[2018-07-04 14:24] VITALS: O2SAT 98
[2018-07-04] MEDS ORDERED: Measles/Mumps/Rubella Vaccine Inj 0.5 ML Vial SQ ONE (16:00)
[2018-07-04] MEDS ORDERED: Diphtheria/Tetanus/Pertussis Vaccine Inj 0.5 ML Syringe IM ONE (16:00)
[2018-07-04 19:37] LABS: Hematocrit 29.1 % (35.0-46.0); Hemoglobin 9.7 gm/dL (11.6-15.3)
[2018-07-04 21:46] VITALS: RESP 18
[2018-07-05 09:00] VITALS: BP 117/66; PULSE 83; TEMP 98
--- NOTE | 2018-07-05 09:18 | P.PNOB ---
Subjective Post op day: 2 Interval history: Patient is a 33-year-old G 6 P 3 who is day 2 after repeat section. Patient's pain is well-controlled. Patient reports eating and drinking without any nausea or vomiting. Patient reports minimal bleeding. Patient has passed gas and had bowel movements. Patient is walking without lower extremity pain or shortness of breath. She feels much better today. Patient reports desire for breast-feeding. She was transfused 2 units of packed red blood cells yesterday. Her repeat hemoglobin is stable at 9.7. She did score 811 on the depression scale. Patient reports that she has a history of depression with her previous . She was on Zoloft for 3- month. She reports that the feelings she is feeling at this time are situational. She was upset that she was not able to have a and had any C- section. She was scared because of her transfusion that she had yesterday. She is able to contract for safety at this time. She feels like she has a great support system at home between her family and her mandaeism. The patient will follow with her OB provider next week. I discussed with her at length that if she should have worsening feelings of sadness or depression that she should return to clinic sooner. Objective Vital Signs/I&O: Vital Signs 07/04/18 09:59 07/04/18 10:16 07/04/18 13:15 Temperature 98.5 F 98.2 F 98.2 F Pulse Rate 84 85 76 Respiratory Rate 16 16 17 Blood Pressure 95/57 L 93/54 L 96/62 L Pulse Oximetry 97 96 95 07/04/18 14:22 07/04/18 20:00 07/05/18 08:00 Temperature 98.3 F 98.6 F 98.0 F Pulse Rate 95 H 89 83 Respiratory Rate 16 18 18 Blood Pressure 109/68 107/62 117/66 Pulse Oximetry 98 Intake & Output 07/04/18 07/05/18 07/05/18 18:59 06:59 18:59 Intake Total 800 / 800 Balance 800 / 800 Intake: Intake (Blood Product) Amt 800 / 800 Rbc As-3 Leukoreduced Unit 400 / 400 [id number] Rbc As-3 Leukoreduced Unit 400 / 400 [id number] Result Diagrams: 07/04/18 19:32 Objective Remarks: GENERAL: Well-nourished, well-developed patient. CARDIOVASCULAR: Regular rate and rhythm without murmurs, gallops, or rubs. RESPIRATORY: Breath sounds equal bilaterally. No accessory muscle use. ABDOMEN/GI: Abdomen soft, non-tender, bowel sounds present. Incision: Clean, dry and intact. Fundus: Firm, non-tender at umbilicus. GENITOURINARY: Light to moderate bleeding. EXTREMITIES: No cyanosis or edema, non-tender, without signs of DVT. Medications and IVs: Active Medications Acetaminophen (Tylenol) 650 mg PO Q6H PRN PRN Reason: PAIN SCALE 1 TO 2 Citric Acid/Sodium Citrate (Sodium Citrate/Citric Acid Liq) 30 ml PO [facility] Stop: 07/06/18 19:29 Fentanyl Citrate (Fentanyl Inj) 50 mcg IV.PUSH Q1H PRN PRN Reason: Pain Scale 3 - 5 Last Admin: 07/02/18 23:25 Dose: 50 mcg Fentanyl Citrate (Fentanyl Inj) 100 mcg IV.PUSH Q1H PRN PRN Reason: PAIN SCALE 6 TO 10 Lactated Ringer's (Lr 1000 Ml Inj) 1,000 mls @ 3,000 mls/hr IV.SIG UNSCH PRN PRN Reason: compromise or epidural Lactated Ringer's (Lr 1000 Ml Inj) 1,000 mls @ 125 mls/hr IV.CONT .Q8H [facility] Last Admin: 07/05/18 03:30 Dose: Not Given Sodium Chloride (Ns Inj) 500 mls @ 1,000 mls/hr IV.SIG UNSCH PRN PRN Reason: SEE LABEL COMMENTS Sodium Chloride (Ns Inj) 1,000 mls @ 100 mls/hr IV.CONT .Q10H PRN PRN Reason: SEE LABEL COMMENTS Oxytocin (Pitocin 30 Units/Ns 500 Ml Premix) 30 units in 500 mls @ 100 mls/hr IV.SIG UNSCH PRN PRN Reason: Heavy bleeding Ibuprofen (Motrin) 800 mg PO Q8H PRN PRN Reason: cramping Last Admin: 07/05/18 05:37 Dose: 800 mg Lidocaine HCl (Xylocaine 1% Inj) 0.1 ml I-DERMAL PRN PRN PRN Reason: For IV start Stop: 07/05/18 19:18 Mineral Oil (Muri-Lube Oil) 10 ml TOPICAL PRN PRN PRN Reason: PRN perineal massage Naloxone HCl (Narcan Inj) 0.1 mg IV.PUSH Q2M PRN PRN Reason: for opiate reversal Ondansetron HCl (Zofran Inj) 4 mg IV.PUSH Q6H PRN PRN Reason: NAUSEA OR VOMITING Oxycodone/Acetaminophen (Percocet 5/325 Mg) 1 tab PO Q4H PRN PRN Reason: PAIN SCALE 3 TO 5 Last Admin: 07/05/18 05:38 Dose: 1 tab Oxycodone/Acetaminophen (Percocet 5/325 Mg) 2 tab PO Q4H PRN PRN Reason: PAIN SCALE 6 TO 10 Last Admin: 07/04/18 20:44 Dose: 2 tab Senna/Docusate Sodium (Nahomi-Colace) 2 tab PO Q12H PRN PRN Reason: CONSTIPATION Last Admin: 07/04/18 03:30 Dose: 2 tab Simethicone (Mylicon Chew) 80 mg PO QID PRN PRN Reason: FLATULENCE Sodium Chloride (Ns Flush) 2 ml IV.FLUSH BID MARIA DEL CARMEN Last Admin: 07/04/18 21:00 Dose: 2 ml Sodium Chloride (Ns Flush) 2 ml IV.FLUSH PRN PRN PRN Reason: FLUSH AFTER USING IV ACCESS Zolpidem Tartrate (Ambien) 5 mg PO HS PRN PRN Reason: INSOMNIA Assessment and Plan - Diagnosis (1) delivery delivered Code(s): O82 - Encounter for delivery without indication Status: Acute - Plan Patient is a 33-year-old G 6 P 3 who is day 2 after section. Patient was counseled to do 6 weeks of pelvic rest. Patient was counseled to follow up next week with Dr. Waldrop due to her score on the depression scale. Patient requested follow-up. --AF VSS --Continue routine care --Status post transfusion of 2 units packed red blood cells. Hemoglobin stable --TSH, B12, progesterone due to high score on depression scale --I sent the patient home with a prescription for Zoloft 25 mg daily --Motrin and Percocet when necessary for pain --Encourage OOB --Pelvic rest for 6 weeks --Contraception: contemplating --Discharged today - Attending Attestation pt discussed with PGY 1 + RN - denies suicidal or homicidal ideation - good family support / reliable with follow up
[2018-07-05] MEDS ORDERED: Ferrous Sulfate 325 MG Tablet PO SCH (09:45)
[2018-07-05] MEDS ORDERED: Ascorbic Acid 500 MG Tablet PO SCH (09:45)
[2018-07-05] MEDS: Senna/Docusate Sodium 8.6/50 MG Tablet PO PRN (10:19)
[2018-07-05 12:11] LABS: Thyroid Stimulating Hormone 6.65 uIU/mL (0.358-3.740)
== END 2018-07-05 14:59 | disposition home or self-care (01) | DRG 787 ==
LOC: HOBED 18:44 → H2E 19:20 → H1EA 07-03 03:53
PROVIDERS: ADMIT Obstetrics & Gynecology Maternal & Fetal Medicine; ATTEND Obstetrics & Gynecology Maternal & Fetal Medicine
CPT/HCPCS: 36430; 59025; 74410; 80101; 80301; 80307; 81001; 82607; 84144; 84443; 85014; 85018; 85025; 85027; 86850; 86900; 86901; 86920; 86922; 86923; 99285; A4646; G0431; G0479; G0481; G0483; J0131; J2274; J2540; J2590; J3010; J7050; J7120; P9016; P9045; Q9950; Q9965; Q9967